=== PATIENT | female | born 1995 ===

== ENCOUNTER 2024-07-24 22:37 | Emergency (ER) | payer MEDICAID, SELFPAY ==
[2024-07-24 22:43] VITALS: BP 110/65; PULSE 136; TEMP 37.4; O2SAT 96; BMI 31.4
--- NOTE | 2024-07-24 23:04 | ED_ITS ---
HPI - URI/Sore Throat General Chief Complaint: Upper Respiratory Infection Stated Complaint: FEVER, CONGESTION, DIFF BREATHING, HEADACHE Time Seen by Provider: 07/24/24 22:52 Source: patient Limitations: no limitations History of Present Illness HPI Narrative: This 28-year-old female who vapes but does not smoke is brought to the emergency department by her significant other for evaluation of fever, cough and congestion. The patient states that she was at work earlier today and started having some severe nasal congestion and a headache. She went home and went to bed and spiked a fever of 103.7. She took Tylenol prior to arrival. She has a runny nose, facial pressure, ear pressure, dry cough and sore throat. She has not had any vomiting or diarrhea. She denies the possibility of . Related Data Home Medications ?Medication ?Instructions ?Recorded ?Confirmed No Known Home Medications 07/24/24 07/24/24 Allergies Allergy/AdvReac Type Severity Reaction Status Date / Time No Known Drug Allergies Allergy Verified 07/24/24 22:48 Review of Systems ROS Status of ROS 10 or more systems reviewed and unremark able except as noted in history and below PFSH PFSH Social History Little interest or pleasure in doing things: not at all Feeling down, depressed, or hopeless: not at all Exam Constitutional Vital Signs, click to edit/add: Last Vital Signs Temp 99.4 F 07/24/24 22:43 Pulse 136 H 07/24/24 22:43 Resp 20 07/24/24 22:43 BP 110/65 07/24/24 22:43 Pulse Ox 96 07/24/24 22:43 O2 Del Method Room Air 07/24/24 22:43 Course Vital Signs Vital signs: Vital Signs Temperature 99.4 F 07/24/24 22:43 Pulse Rate 136 H 07/24/24 22:43 Respiratory Rate 20 07/24/24 22:43 Blood Pressure 110/65 07/24/24 22:43 Pulse Oximetry 96 07/24/24 22:43 Oxygen Delivery Method Room Air 07/24/24 22:43 Temperature 99.4 F 07/24/24 22:43 Pulse Rate 136 H 07/24/24 22:43 Respiratory Rate 20 07/24/24 22:43 Blood Pressure 110/65 07/24/24 22:43 Pulse Oximetry 96 07/24/24 22:43 Oxygen Delivery Method Room Air 07/24/24 22:43 MDM - URI/Sore Throat MDM Narrative Medical decision making narrative: This 28-year-old female with no significant medical history presents for evaluation of severe nasal congestion, body aches and fever 103.7 at home. She has a dry cough. She took Tylenol prior to arrival and upon arrival she was breaking her fever. She is not having any vomiting or diarrhea. She denies the possibility of . She was noted to be febrile and tachycardic upon arrival with a pulse in the 130s. Her blood pressure is stable. She is not in any respiratory distress. An IV is placed and she was medicated with IV fluids and Toradol. She is positive for influenza A. Negative for COVID-19 and strep. Two-view chest x-ray was reviewed by radiology and is negative for acute findings. On reevaluation after IV fluids and Toradol she is feeling better. She declines need for anything at this time. She is agreeable to a prescription for Tamiflu and since her symptoms started earlier today she is eligible for this treatment. Lab Data Labs: Lab Results 07/24/24 07/24/24 Range/Units 22:45 23:20 Influenza Type A Ag Positive A Influenza Type B Ag Negative SARS-CoV-2 Ag (CV2AG) Negative (NEGATIVE) Streptococcus Screen Negative Discharge Plan Discharge Chief Complaint: Upper Respiratory Infection Clinical Impression: Influenza Patient Disposition: Home, Self-Care Prescriptions / Home Meds: No Action No Known Home Medications Print Language: Salvadorean
[2024-07-24 23:15] LABS: Influenza Virus A Antigen Positive
[2024-07-24 23:16] LABS: Influenza Virus B Antigen Negative; Internal Control Within Normal Limits
[2024-07-24 23:17] LABS: Internal Control Within Normal Limits; SARS-CoV-2 Ag NEGATIVE (NEGATIVE)
[2024-07-24 23:30] LABS: Internal Control Within Normal Limits; Strep A Antigen Screen Negative
[2024-07-24] MEDS: 0.9 % SODIUM CHLORIDE 1,000 ML 1000 ML IV (23:37)
[2024-07-24] MEDS: KETOROLAC TROMETHAMINE 30 MG/ML VIAL IVP (23:37)
[2024-07-25 00:43] VITALS: BP 105/68; PULSE 94; O2SAT 97
== END 2024-07-25 00:47 | disposition home or self-care (01) ==
PROVIDERS: Emergency Provider Emergency Medicine; PCP Nurse Practitioner
DX: J10.1 Influenza due to other identified influenza virus with other respiratory manifestations (principal); F17.290 Nicotine dependence, other tobacco product, uncomplicated
CPT/HCPCS: 71046; 87070; 87804; 87811; 87880; 96374; 99284; J1885